=== PATIENT | male | born 1940 | race Caucasian/White ===

== ENCOUNTER 2018-01-01 06:14 | Observation (INO) ==
--- NOTE | 2017-12-31 11:36 | MH ---
cc: Mario Casillas MD DATE OF ADMISSION: 01/01/2018 DATE OF ADMISSION FOR SURGERY: 01/01/2018 ADMITTING DIAGNOSIS: Osteoarthritic degeneration, right knee, now being admitted for right total knee arthroplasty. HISTORY OF PRESENT ILLNESS: This pleasant 77-year-old male is being admitted today for right total knee arthroplasty due to severe painful osteoarthritic degeneration, right knee. PAST MEDICAL HISTORY: The patient has a history of back pain and arthritis. CURRENT MEDICATIONS: Include atorvastatin, niacin, and apple cider vinegar. PAST SURGICAL HISTORY: No previous surgeries. REVIEW OF SYSTEMS: Noncontributory. FAMILY HISTORY: Noncontributory. SOCIAL HISTORY: He does not smoke or drink. ALLERGIES: NO KNOWN ALLERGIES. PHYSICAL EXAMINATION: GENERAL: We find a 77-year-old male, well-developed, well-nourished, oriented x 3, complaining of pain in his right knee. VITAL SIGNS: Blood pressure 130/62, pulse 52 and regular, respirations 18, temperature 98.7, pulse oximetry 96% on room air. HEENT: Eyes PERRLA, EOMI. Ears, nose, mouth clear. NECK: Supple. LUNGS: Clear. HEART: Regular rate. ABDOMEN: Soft, positive bowel sounds, nontender. EXTREMITIES: Reveal both knees to have genu varus deformities, right worse than the left. He is neurovascularly intact to his toes. IMPRESSION: Severe painful osteoarthritic degeneration, right knee. PLAN: Admission for a right total knee arthroplasty today. The patient was given a prescription for postoperative pain control preoperatively as well as anticoagulation therapy. He plans on going home after surgical stay in the hospital. MD VERO Storm/april , 11:19 AM , 11:27 AM
[2018-01-01] MEDS ORDERED: Metoprolol Tartrate 25 MG Tablet PO ONE (06:44)
[2018-01-01] MEDS ORDERED: Chlorhexidine Gluconate 2% 1 Pack (2 Cloths) TOPICAL ONE (06:44)
[2018-01-01] MEDS ORDERED: Sodium Chlor 0.9% Inj 80 ML, Bupivacaine Liposo PF 1.3% Inj 20 ML P-ARTICULR SCH ×2 (07:00)
[2018-01-01] MEDS ORDERED: Dexamethasone Inj 20 MG/5 ML Vial IV.PUSH SCH (07:00)
[2018-01-01] MEDS ORDERED: TRANEXAMIC ACID IV.SIG SCH (07:00)
[2018-01-01] MEDS ORDERED: Sodium Chlor 0.9% Inj 500 ML IV.SIG SCH (07:00)
[2018-01-01] MEDS ORDERED: SODIUM CHLOR 0.9% IV.SIG SCH (07:00)
[2018-01-01] MEDS ORDERED: ceFAZolin 2 GM Premix Inj 2 GM/50 ML PIGGYBACK IV.SIG SCH (07:00)
[2018-01-01] MEDS ORDERED: Vancomycin Inj 1,000 MG in Sodium Chlor 0.9% Inj 250 ML IV.SIG SCH (07:00)
[2018-01-01] MEDS ORDERED: Bupivacaine Liposomal PF 1.3% Inj 20 ML Vial ONE (07:46)
[2018-01-01] MEDS ORDERED: Bupivacaine 0.5% Inj 50 ML MDV Vial ONE (07:48)
[2018-01-01] MEDS ORDERED: Morphine Inj 4 MG/ML Vial IV.PUSH PRN (08:34)
[2018-01-01] MEDS ORDERED: Bisacodyl 10 MG Supp RECTAL PRN (08:34)
[2018-01-01] MEDS ORDERED: Post-op Orders (for Pharmacy) OTHER STA (08:34)
[2018-01-01] MEDS ORDERED: Lidocaine PF 1% Inj 5 ML Syringe INFILTRATN ONE (08:45)
[2018-01-01] MEDS ORDERED: Neostigmine Inj 5 MG/5 ML Syringe IV.PUSH ONE (08:45)
[2018-01-01] MEDS ORDERED: Glycopyrrolate Inj 1 MG/5 ML Syringe IV.PUSH ONE (08:45)
[2018-01-01] MEDS ORDERED: Non-Formulary Drug (Omega 3-Dha-Epa-Fish Oil [Omega-3] 1 CAP) PO SCH (09:00)
[2018-01-01] MEDS ORDERED: APPLE CIDER VINEGAR PO SCH (09:00)
[2018-01-01] MEDS ORDERED: Tranexamic Acid Inj 1,000 MG in Sodium Chlor 0.9% Inj 100 ML IV.SIG SCH (10:00)
[2018-01-01] MEDS ORDERED: fentaNYL Citrate Inj 100 MCG/2 ML Ampul ONE (11:14)
--- NOTE | 2018-01-01 11:32 | MP ---
cc: Mario Casillas MD DATE OF OPERATION: 01/01/2018 PREOPERATIVE DIAGNOSIS: Osteoarthritic degeneration, right knee, with varus deformity. POSTOPERATIVE DIAGNOSIS: Osteoarthritic degeneration, right knee, with varus deformity. PROCEDURE PERFORMED: Right total knee arthroplasty using Consensus components, size 5 femur, 4 tibia, 1 patella with size 10 insert, and 2 batches of antibiotic-impregnated cement. SURGEON: Mario Casillas MD. COMPENSATION SPECIALIST: KOBE Jenkins. ANESTHESIA: General intubation and block. PROCEDURE: After successful induction of anesthesia, the patient is placed on the operating room table in the supine position. The knee is prepped and draped in the usual manner. A tourniquet is inflated at the upper thigh and set to 300 mmHg pressure after exsanguination of the lower extremity. A longitudinal incision is made extending from 3 inches proximal to the superior pole of the patella, across the patella in longitudinal fashion, and down past the insertion of the tibial tubercle into the proximal tibia. The incision is carried down through subcutaneous tissue along the medial aspect of the patella and retinaculum, down through the capsule to expose the knee joint. The patella and patellar tendon are freed up enough to allow the patella to be inverted and retracted off the lateral side of the knee joint. The knee joint is left exposed. Small osteophytes are removed. All soft tissue is removed to allow proper position of the femoral and tibial cutting jig guide. The first femoral jig is then inserted along the distal end of the femur after first measuring to decide whether this is a small, medium, or large component. The notch is then drilled and the tibial cutting guide inserted into the femoral cutting guide, along with the ankle brace to allow for proper measurement of the tibial cutting surface that needed to be resected. Pins are inserted into the tibial cutting jig and femoral cutting jig to hold them in place. An oscillating saw is then used to resect the surface of the tibia. The surface of the tibia is then completely removed using sharp and blunt dissection. The anterior and posterior cuts of the femur are then made as well using an oscillating saw through the cutting guide. All guides are then removed and the varus/valgus angulation cutting guide applied to the femur for proper measurement of the proper amount of valgus. The anterior cutting guide for the femur is then inserted at the anterior femoral cuts made. Next, the first block trial is inserted into the femur to allow for proper condyle drill holes to be made which are then made followed by removal of the bone between the condyles using an oscillating saw as well as the bone removed at the most posterior surface of the condyle. After this, this guide is removed and the chamfer cuts made using the chamfer cutting guide from both anterior and posterior. Next, the femoral trial is then inserted, the tibial surface reflected anterior to expose the tibial surface and a tibial stem guide is inserted after first measuring for a standard, standard plus, large, or large plus surface to be used. After the stem is impacted the trial tibial surface is applied followed by the trial meniscal components. After full range of motion is found with the appropriate length meniscal components varying the patella is prepared by resecting the posterior aspect of the patella using an oscillating saw, inserting a trial. The trial is then removed and the cruciate cutting guide applied using the bur to cut the cruciate cuts. After cruciate cuts are made all trials are removed. The wound is irrigated copiously with antibiotic solution and Water Pik and the actual components inserted into place using the aforementioned components. After the cement has hardened and the components are found to have full range of motion with no instability, the tourniquet is deflated, total tourniquet time being 47 minutes at 300 mmHg pressure. Then 120 mL Exparel used around the knee joint for extra pain control. Meticulous hemostasis achieved and the deep fascia approximated with running #2 Quill. Subcutaneous tissue approximated using interrupted and running 2-0 and 3-0 Monocryl on a Quill suture and a Prineo dressing and a knee immobilizer. No drain utilized. The patient tolerated the procedure well and left the Operating Room in satisfactory condition. KOBE Jenkins, was present during the entire procedure to include patient positioning and the procedure. The medical necessity of nurse practitioner elder assistant was indicated in this case due to the surgical complexity of the case itself. During the surgical case, the certified surgical technician was working the back table while my neurosurgical nurse practitioner KOBE was directly assisting me. ESTIMATED BLOOD LOSS: 100 mL. COUNTS: Sponge and suture counts were correct. COMPONENTS: The components used were Consensus components, size 5 femur, 4 tibia, 1 patella with size 10 insert, and 2 batches of antibiotic-impregnated cement. J. Rojelio Casillas MD JRConcepcion/rs , 11:06 AM , 11:12 AM
--- NOTE | 2018-01-01 11:48 | XR ---
EXAM DATE: 01/01/2018 11:44 AM EDT AGE/SEX: 77 years / Male INDICATIONS: Post right knee arthroplasty CLINICAL DATA: This is the patient's initial encounter. Patient reports that signs and symptoms have been present for 1 day and indicates a pain score of 0/10. MEDICAL/SURGICAL HISTORY: Arthritis. None. COMPARISON: No prior exams available for comparison. FINDINGS: A total knee arthroplasty is identified. The tibial and femoral components appear well seated. There is subcutaneous air present. No fracture or dislocation. CONCLUSION: Postop right total knee arthroplasty. Electronically signed by: Gavin Garvin MD 01/01/2018 11:47 AM EDT
[2018-01-01] MEDS: Multivitamin/Minerals Therapeutic Tablet PO SCH ×2 (20:11→23:32)
[2018-01-01] MEDS: Senna/Docusate Sodium 8.6/50 MG Tablet PO SCH ×2 (20:11→23:32)
[2018-01-02 07:36] LABS: Hematocrit 40.7 % (39.0-51.0); Hemoglobin 13.9 gm/dL (13.0-17.0)
[2018-01-02] MEDS: Multivitamin/Minerals Therapeutic Tablet PO SCH (08:19)
[2018-01-02] MEDS: Senna/Docusate Sodium 8.6/50 MG Tablet PO SCH (08:19)
[2018-01-02 09:11] VITALS: RESP 16
[2018-01-02 12:32] VITALS: BP 152/95; PULSE 84; TEMP 99; O2SAT 95
--- NOTE | 2018-01-02 12:48 | P.DCO ---
- Physical Therapy Order: Evaluate and treat, Improve ambulation, Strength and gait training - Home Health Nursing Order: Medical education, Nursing assessment with vital signs - Certification I have seen patient Paulo Palmer on 01/02/18. My clinical findings support the need for the requested home health care services because: High risk of falls I certify that my clinical findings support that this patient is homebound because: Post-op weakness, Unsteady gait/balance
--- NOTE | 2018-01-02 12:50 | P.PNOP ---
Subjective Interval history: Patient comfortable at present time. Physical Exam Vital signs: Vital Signs 01/01/18 16:00 01/01/18 20:00 01/02/18 00:00 Temperature 97.5 F L 98.0 F 98.9 F Pulse Rate 69 74 75 Respiratory Rate 16 17 18 Blood Pressure 159/74 H 166/77 H 137/62 Pulse Oximetry 95 96 97 01/02/18 04:00 01/02/18 08:00 01/02/18 12:00 Temperature 98.2 F 98.6 F 99 F Pulse Rate 68 85 84 Respiratory Rate 17 16 16 Blood Pressure 152/67 H 160/71 H 152/95 H Pulse Oximetry 96 93 L 95 Intake & Output 01/01/18 01/02/18 01/02/18 18:59 06:59 18:59 Intake Total 1668.38 / 1668.38 1300 / 1300 Output Total 100 / 100 1600 / 1600 Balance 1568.38 / 1568.38 -300 / -300 Weight 83.461 kg 84 kg Intake: IV 1518.38 / 1518.38 1300 / 1300 LR 1000 mL Inj 1,000 ML @ 80 1000 / 1000 mls/hr IV.CONT .[id number] [facility] Rx# :[id number] LR 1000 mL Inj 1,000 ML @ 30 1000 / 1000 mls/hr IV.SIG .Q24H [facility] Rx#: [id number] Cyklokapron Inj 1,000 MG In NS 218.38 / 218.38 Inj 100 ML @ 200 mls/hr IV.SIG TOOL MACHINE SET UP OPERATOR LYDIA Rx#:[id number] Vancomycin Inj 1,000 MG In NS 250 / 250 Inj 250 ML @ 250 mls/hr IV.SIG TOOL MACHINE SET UP OPERATOR LYDIA Rx#:[id number] Ancef 2 GM Premix Inj 2 gm In 50 / 50 50 ml @ 100 mls/hr IV.SIG TOOL MACHINE SET UP OPERATOR LYDIA Rx#:[id number] Ancef Inj 1,000 MG In NS Inj 300 / 300 100 ML @ 200 mls/hr IV.SIG Q6H LYDIA Rx#:[id number] Anesthesia Amount 150 / 150 Output: Urine 1600 / 1600 Estimated Blood Loss 100 / 100 - Constitutional no acute distress Results - Labs CBC & Chem 7: 01/02/18 06:24 Laboratory Results - last 24 hr 01/02/18 06:24 Hgb 13.9 Hct 40.7 Assessment and Plan - Problem List (1) Status post total right knee replacement using cement Code(s): Z96.651 - Presence of right artificial knee joint Status: Acute - Attending Attestation Attending Attestation: Dressing dry and intact. NV intact to toes. No calf tenderness. Doing well sp right total knee arthroplasty. Plan for home today with HHC and PT. Pt has appt next week to see Dr Casillas. Discharged in good condition.
== END 2018-01-02 19:26 | disposition home health service (06) ==
LOC: HSDC 06:14 → HSDI 06:14 → EDSTATUS 08:30 → N06 12:14
PROVIDERS: ADMIT Surgery; ATTEND Surgery